=== PATIENT | female | born 1965 | race Two or more races ===

== ENCOUNTER 2023-01-25 00:03 | Emergency (ER) | payer OTHER ==
[~2023-01-25] VITALS: Ht 170.2 cm; Wt 59.0 kg
[2023-01-25] MEDS ORDERED: MELATONIN2.5 MG (00:18)
[2023-01-25] MEDS ORDERED: TRAZODONE HCL5 GM (00:18)
[2023-01-25] MEDS ORDERED: TIZANIDINE HCL2 M1 (00:19)
[2023-01-25] MEDS ORDERED: ACETAMINOPHEN500 M2 PO (02:42)
[2023-01-25] MEDS ORDERED: MEDROLPACK PO (02:42)
== END 2023-01-25 03:29 | disposition home or self-care (01) ==
LOC: ER 00:03
DX: S09.8XXA Other specified injuries of head, initial encounter (principal); W19.XXXA Unspecified fall, initial encounter; Y93.89 Activity, other specified; Y92.89 Other specified places as the place of occurrence of the external cause; Y99.8 Other external cause status; R40.20 Unspecified coma; R73.03 Prediabetes; Z91.040 Latex allergy status; Z88.6 Allergy status to analgesic agent
CPT/HCPCS: 70450; 72125; 96372; 99284; J1100